=== PATIENT | male | born 1975 | race Caucasian/White ===

== ENCOUNTER 2017-04-01 18:36 | Emergency (ER) | payer OTHER ==
[~2017-04-01] VITALS: Ht 172.7 cm; Wt 61.8 kg
[2017-04-01 18:56] VITALS: BP 136/83
== END 2017-04-01 19:29 | disposition home or self-care (01) ==
LOC: ED 19:23
DX: L03.113 Cellulitis of right upper limb (principal); L03.114 Cellulitis of left upper limb
CPT/HCPCS: 99283

== ENCOUNTER 2017-07-16 23:50 | Emergency (ER) | payer SELFPAY ==
[~2017-07-16] VITALS: Ht 170.2 cm; Wt 69.8 kg
[2017-07-16] MEDS ORDERED: PROPARACAINE OPHTH 0.5%, 15ML ONE (23:52)
[2017-07-16] MEDS ORDERED: FLUORESCEIN OPHTHALMIC 1 MG STRIP ONE (23:52)
[2017-07-17] MEDS ORDERED: CIPROFLOXACIN OPHTH SOLN 0.3%, 5ML RIGHTEYE ONE (01:00)
[2017-07-17 01:25] VITALS: BP 119/74
== END 2017-07-17 01:27 | disposition home or self-care (01) ==
LOC: ED 07-17 01:15
DX: S05.01XA Injury of conjunctiva and corneal abrasion without foreign body, right eye, initial encounter (principal); H10.021 Other mucopurulent conjunctivitis, right eye; X58.XXXA Exposure to other specified factors, initial encounter; Y93.89 Activity, other specified; Y92.89 Other specified places as the place of occurrence of the external cause; Y99.8 Other external cause status
CPT/HCPCS: 99283

== ENCOUNTER 2017-07-22 13:34 | Emergency (ER) | payer MEDICAID, OTHER ==
[~2017-07-22] VITALS: Ht 170.2 cm; Wt 68.6 kg
[2017-07-22 13:36] VITALS: BP 125/82
[2017-07-22] MEDS ORDERED: PROPARACAINE OPHTH 0.5%, 15ML EACHEYE ONE (14:30)
[2017-07-22] MEDS ORDERED: FLUORESCEIN OPHTHALMIC 1 MG STRIP EACHEYE ONE (14:30)
[2017-07-22] MEDS ORDERED: FLUORESCEIN OPHTHALMIC 1 MG STRIP ONE (14:30)
[2017-07-22] MEDS ORDERED: PROPARACAINE OPHTH 0.5%, 15ML ONE (14:31)
[2017-07-22] MEDS ORDERED: CIPROFLOXACIN OPHTH SOLN 0.3%, 5ML RIGHTEYE SCH (16:30)
[2017-07-22] MEDS ORDERED: ERYTHROMYCIN OPHTH 0.5%, 1GM RIGHTEYE ONE (16:30)
== END 2017-07-22 18:12 | disposition home or self-care (01) ==
LOC: ED 16:21
DX: S05.01XA Injury of conjunctiva and corneal abrasion without foreign body, right eye, initial encounter (principal); H16.001 Unspecified corneal ulcer, right eye; W45.8XXA Other foreign body or object entering through skin, initial encounter; Y93.E8 Activity, other personal hygiene; Y92.89 Other specified places as the place of occurrence of the external cause; Y99.8 Other external cause status
CPT/HCPCS: 87070; 87205; 99283; 99284

== ENCOUNTER 2017-11-22 10:13 | Emergency (ER) | payer SELFPAY ==
[~2017-11-22] VITALS: Ht 170.2 cm; Wt 64.0 kg
[2017-11-22 10:16] VITALS: BP 172/108
[2017-11-22] MEDS ORDERED: SULFAMETH./TRIMETHOPRIM DS 800MG/160MG TABLET ONE (10:43)
[2017-11-22] MEDS ORDERED: CEPHALEXIN 500 MG CAPSULE ONE (10:43)
[2017-11-22] MEDS ORDERED: SULFAMETH./TRIMETHOPRIM DS 800MG/160MG TABLET PO ONE (11:00)
[2017-11-22] MEDS ORDERED: DIPH,PERTUSS(ACELL),TET VAC/PF 0.5 ML IM-VACC ONE ×2 (11:00→11:11)
[2017-11-22] MEDS ORDERED: CEPHALEXIN 500 MG CAPSULE PO ONE (11:00)
[2017-11-22] MEDS ORDERED: BACITRACIN ZINC OINT 500U/GM, 0.9 GM ONE ×2 (11:03)
== END 2017-11-22 11:17 | disposition home or self-care (01) ==
LOC: ED 10:55
DX: L03.116 Cellulitis of left lower limb (principal)
CPT/HCPCS: 90471; 90715

== ENCOUNTER 2018-01-19 12:29 | Emergency (ER) | payer OTHER ==
[~2018-01-19] VITALS: Ht 170.2 cm; Wt 65.4 kg
[2018-01-19 12:31] VITALS: BP 107/67
[2018-01-19] MEDS ORDERED: AZITHROMYCIN 500 MG TABLET ONE (12:53)
[2018-01-19] MEDS ORDERED: CEFTRIAXONE 250 MG ONE (12:54)
[2018-01-19] MEDS ORDERED: CEFTRIAXONE 250 MG IM ONE (13:00)
[2018-01-19] MEDS ORDERED: AZITHROMYCIN 500 MG TABLET PO ONE (13:00)
[2018-01-19] MEDS ORDERED: BICILLIN-LA 2,400,000 UNITS/4 ML IM ONE (14:00)
== END 2018-01-19 14:32 | disposition home or self-care (01) ==
LOC: ED 14:26
DX: N34.1 Nonspecific urethritis (principal); Z20.2 Contact with and (suspected) exposure to infections with a predominantly sexual mode of transmission
CPT/HCPCS: 36415; 86592; 87491; 87591; 87806; 96372; 99284; J0561; J0696; G0475